=== PATIENT | male | born 1960 ===

== ENCOUNTER 2020-12-23 11:52 | Emergency (ER) | payer OTHER ==
[~2020-12-23] VITALS: Ht 182.9 cm; Wt 81.6 kg
== END 2020-12-23 17:04 | disposition home or self-care (01) ==
LOC: ER 11:52
DX: S01.02XA Laceration with foreign body of scalp, initial encounter (principal); W45.8XXA Other foreign body or object entering through skin, initial encounter; Y93.89 Activity, other specified; Y92.89 Other specified places as the place of occurrence of the external cause; Y99.8 Other external cause status